=== PATIENT | female | born 1975 | race African-American/Black ===

== ENCOUNTER 2016-12-03 10:47 | Inpatient (IN) | payer OTHER ==
[~2016-12-03] VITALS: Ht 170.2 cm; Wt 93.0 kg
[~2016-12-03 10:47] MED LIST: ADIPEX-P37.5 M1 PO; ALDACTONE50 MG PO; ALEVE220 MG PO; ALLEGRA30 MG PO; APAP500 PO; B COMPLEX-VITA1 EACH PO; BENADRYL25 MG PO; CARISOPRODOL 3350 MG PO; COLACE100 MG PO; DIFLUCAN150 M1 PO; ERYTHROMYCIN E3.5 G1; ERYTHROMYCIN E3.5 G1 OP; FEOSOL325 M1 PO; FLEXERIL PO; FLONASE 0.05%50 MCG NASAL; FLONASE16 GM INH; GAS RELIEF 8080 MG PO; IBUPROFEN 600600 M1 PO; IBUPROFEN 800800 M1 PO; IRON PO; LOTRISONE CREAM15 GM TOP; MEDROLDOSEPACK PO; NABUMETONE 750750 M1 PO; NORCO 5-325 TA1 EACH PO; NORFLEX100 MG PO; ORACEA40 MG PO; PEPCID AC20 M1 PO; PEPCID AC20 MG PO; PEPCID20 MG PO; PERCOCET 5-3251 EACH PO; PHENTERMINE H37.5 MG PO; PREDNISONE 10 M10 MG PO; PREDNISONE 20 M20 M1 PO; PREDNISONE50 MG PO; PRILOSEC 20 MG20 MG PO; THERA-M CAPLET1 EACH PO; TRAMADOL 50 MG50 MG PO; TRINATE TABLET1 TAB PO; VANCOMYCIN1.25 GM/15 IV; VISTARIL 25 MG25 M1 PO; ZANAFLEX4 MG PO; ZOFRAN 4 MG ORAL4 MG PO; ZOFRAN ODT4 MG PO; [UNRECOGNIZED DRUG - OTHER] INJECTION; [UNRECOGNIZED DRUG - OTHER] PO
[2016-12-03 10:49] VITALS: BP 136/71
[2016-12-03 11:32] LABS: ABSOLUTE NEUTROPHILS 2.9 thou/uL (1.4-8.2); BASOPHILS 0.3 % (0.0-2.0); HEMATOCRIT 35.8 % (37.0-47.0); LYMPHOCYTES 20.9 % (24.0-44.0); MCH 29.9 pg (26.0-34.0); MCHC 33.6 g/dL (28.0-37.0); MCV 88.9 fL (80.0-100.0); PLATELET COUNT 304 thou/uL (150-400); POLYS 61.8 % (36.0-66.0); RBC 4.02 mil/uL (4.20-5.00); RDW 13.7 % (10.5-14.5); WBC 4.7 thou/uL (4.0-11.0)
[2016-12-03 11:33] LABS: MANUAL DIFF NO
[2016-12-03 11:44] LABS: CALCIUM 8.9 mg/dL (8.5-10.1); CREATININE 0.7 mg/dL (0.6-1.3)
[2016-12-03 11:46] LABS: POTASSIUM 4.5 mmol/L (3.5-5.1)
[2016-12-03] MEDS ORDERED: COLACE100 MG PO (11:54)
[2016-12-03] MEDS ORDERED: MOBIC15 MG PO (11:54)
[2016-12-03] MEDS ORDERED: KEFLEX500 MG PO (11:54)
[2016-12-03] MEDS ORDERED: HYDROCODON-ACE1 EAC7 PO (11:54)
[2016-12-03] MEDS ORDERED: HYDROCODONE-AP1 EAC6 PO (11:55)
[2016-12-03 15:22] VITALS: BP 132/71
[2016-12-03 15:45] VITALS: BP 139/71
[2016-12-03 20:00] VITALS: BP 129/79
[2016-12-04 04:00] VITALS: BP 117/58
[2016-12-04 07:05] VITALS: BP 116/65
[2016-12-04 15:15] VITALS: BP 113/62
[2016-12-04 19:35] VITALS: BP 109/67
[2016-12-05 04:00] VITALS: BP 107/51
[2016-12-05 08:48] VITALS: BP 118/72
[2016-12-05] MEDS ORDERED: ROBITUSSIN DM118 ML PO (11:47)
[2016-12-05] MEDS ORDERED: LEVAQUIN 500 M500 M2 PO (11:48)
[2016-12-05 12:53] VITALS: BP 118/72
[2016-12-05] MEDS ORDERED: ACCUNEB SO1.25 MG/1 INH (13:58)
== END 2016-12-05 15:00 | disposition home or self-care (01) | DRG 194 ==
LOC: ER 10:47 → 5S 13:01 → EROBS 13:01 → 5S 15:20
PROVIDERS: Emergency Medicine
DX: J15.9 Unspecified bacterial pneumonia (principal); J90 Pleural effusion, not elsewhere classified; Z90.711 Acquired absence of uterus with remaining cervical stump; Z79.2 Long term (current) use of antibiotics; Z79.899 Other long term (current) drug therapy; Z90.49 Acquired absence of other specified parts of digestive tract; Z88.8 Allergy status to other drugs, medicaments and biological substances
CPT/HCPCS: 10086

== ENCOUNTER → 2017-08-04 | Outpatient (CLI) | payer OTHER ==
[~2017-08-04] MED LIST changes: +ACCUNEB SO1.25 MG/1 INH; +AMOXICILLIN 50500 M1 PO; +HYDROCODON-ACE1 EAC7 PO; +HYDROCODONE-AP1 EAC6 PO; +KEFLEX500 MG PO; +LEVAQUIN 500 M500 M2 PO; +MOBIC15 MG PO; +ROBITUSSIN DM118 ML PO
== END ==
LOC: RAD 12:02
DX: M77.11 Lateral epicondylitis, right elbow (principal)

== ENCOUNTER → 2017-10-05 | Outpatient (CLI) | payer OTHER ==
[~2017-10-05] MED LIST changes: +KEFLEX500 M1 PO; +TIZANIDINE HCL4 MG PO; +ULTRAM 50MG TAB50 MG PO
[2017-10-05 15:35] LABS: HEMATOCRIT 40.2 % (37.0-47.0); HEMOGLOBIN 13.5 gm/dL (12.0-15.0); MCH 30.4 pg (26.0-34.0); MCHC 33.5 g/dL (28.0-37.0); MCV 90.8 fL (80.0-100.0); RBC 4.43 mil/uL (4.20-5.00); RDW 13.7 % (10.5-14.5); WBC 8.8 thou/uL (4.0-11.0)
[2017-10-05 15:49] LABS: ALBUMIN 3.5 g/dL (3.4-5.0); CALCIUM 8.6 mg/dL (8.5-10.1); CREATININE 0.7 mg/dL (0.6-1.0); POTASSIUM 3.7 mmol/L (3.5-5.1); TOTAL BILIRUBIN 0.4 mg/dL (<0.1-1.0)
== END ==
LOC: LAB 15:11
PROVIDERS: Internal Medicine Pulmonary Disease
DX: E66.3 Overweight (principal); G47.33 Obstructive sleep apnea (adult) (pediatric); R53.83 Other fatigue; R06.83 Snoring; Z87.01 Personal history of pneumonia (recurrent)

== ENCOUNTER → 2017-10-08 | Outpatient (CLI) | payer OTHER | LOC: SLEEPLAB 09-28 12:42 | DX: G47.33 Obstructive sleep apnea (adult) (pediatric) (principal) ==

== ENCOUNTER 2018-01-20 14:19 | Emergency (ER) | payer OTHER ==
[~2018-01-20] VITALS: Ht 170.2 cm; Wt 93.0 kg
== END 2018-01-20 15:59 | disposition home or self-care (01) ==
LOC: ER 14:19
DX: R10.13 Epigastric pain (principal); Z90.711 Acquired absence of uterus with remaining cervical stump; Z88.8 Allergy status to other drugs, medicaments and biological substances

== ENCOUNTER → 2018-01-20 | Outpatient (CLI) | payer OTHER | LOC: ULTRA 06:57 | DX: N28.1 Cyst of kidney, acquired (principal) ==

== ENCOUNTER → 2018-02-02 | Outpatient (CLI) | payer OTHER | LOC: NUC 06:38 | DX: K21.9 Gastro-esophageal reflux disease without esophagitis (principal) ==

== ENCOUNTER 2019-05-06 22:54 | Emergency (ER) | payer OTHER ==
[~2019-05-06] VITALS: Ht 167.6 cm; Wt 90.7 kg
[2019-05-06] MEDS ORDERED: PHENTERMINE H37.5 M1 PO (23:22)
[2019-05-06] MEDS ORDERED: NAPROSYN500 MG PO (23:45)
[2019-05-06] MEDS ORDERED: NORCO 5-325 TA1 EAC1 PO (23:45)
[2019-05-07 02:46] VITALS: BP 106/38
[2019-05-07] MEDS ORDERED: ONDANSETRON ODT8 MG PO (02:54)
== END 2019-05-07 02:46 | disposition home or self-care (01) ==
LOC: ER 22:54
DX: S76.311A Strain of muscle, fascia and tendon of the posterior muscle group at thigh level, right thigh, initial encounter (principal); S30.0XXA Contusion of lower back and pelvis, initial encounter; S80.02XA Contusion of left knee, initial encounter; Z90.711 Acquired absence of uterus with remaining cervical stump; Z98.890 Other specified postprocedural states; Z88.6 Allergy status to analgesic agent; W01.0XXA Fall on same level from slipping, tripping and stumbling without subsequent striking against object, initial encounter; Y93.89 Activity, other specified; Y92.89 Other specified places as the place of occurrence of the external cause; Y99.8 Other external cause status

== ENCOUNTER → 2019-05-19 | Outpatient (CLI) | payer OTHER ==
[~2019-05-19] MED LIST changes: +NAPROSYN500 MG PO; +NORCO 5-325 TA1 EAC1 PO; +ONDANSETRON ODT8 MG PO; +PHENTERMINE H37.5 M1 PO
== END ==
LOC: MRI 10:09
DX: S96.891A Other specified injury of other specified muscles and tendons at ankle and foot level, right foot, initial encounter (principal); M47.816 Spondylosis without myelopathy or radiculopathy, lumbar region; M47.817 Spondylosis without myelopathy or radiculopathy, lumbosacral region; M79.651 Pain in right thigh; X58.XXXA Exposure to other specified factors, initial encounter; Y93.89 Activity, other specified; Y92.89 Other specified places as the place of occurrence of the external cause; Y99.8 Other external cause status

== ENCOUNTER 2019-08-14 13:25 | Emergency (ER) | payer OTHER ==
[~2019-08-14] VITALS: Ht 170.2 cm; Wt 94.8 kg
[2019-08-14 14:40] VITALS: BP 104/69
== END 2019-08-14 14:40 | disposition home or self-care (01) ==
LOC: ER 13:25
DX: J02.9 Acute pharyngitis, unspecified (principal); H61.22 Impacted cerumen, left ear; Z98.890 Other specified postprocedural states; Z90.711 Acquired absence of uterus with remaining cervical stump; Z88.6 Allergy status to analgesic agent

== ENCOUNTER 2019-09-16 14:54 | Emergency (ER) | payer OTHER ==
[~2019-09-16] VITALS: Ht 170.2 cm; Wt 95.3 kg
[2019-09-16] MEDS ORDERED: PEPCID20 MG PO (16:58)
[2019-09-16] MEDS ORDERED: PREDNISONE 20 M20 MG PO (16:58)
[2019-09-16 17:45] VITALS: BP 122/71
== END 2019-09-16 17:35 | disposition home or self-care (01) ==
LOC: ER 14:54
DX: T78.3XXA Angioneurotic edema, initial encounter (principal); Z98.890 Other specified postprocedural states; Z90.711 Acquired absence of uterus with remaining cervical stump; Z88.6 Allergy status to analgesic agent

== ENCOUNTER → 2019-09-26 | Outpatient (CLI) | payer OTHER ==
[~2019-09-26] MED LIST changes: +PREDNISONE 20 M20 MG PO
== END ==
LOC: ULTRA 15:49
DX: R10.11 Right upper quadrant pain (principal); R11.0 Nausea

== ENCOUNTER → 2019-11-04 | Outpatient (CLI) | payer OTHER ==
[~2019-11-04] VITALS: Ht 170.2 cm; Wt 96.6 kg
[~2019-11-04] MED LIST changes: +ALEVE220 M1 PO; +PANTOPRAZOLE SO40 M1 PO; +TUMS200 MG PO
--- NOTE | 2019-11-04 12:59 | P ---
[facility] [place] [address] PROCEDURE REPORT Name: DEJA SCHWAB Room #: REG [facility] Brittany#: [id number] Admission: 11/04/19 Attend Phys: Rosalino Martinez Discharge: Date of : 75 Report #: [id number] THIS REPORT FOR: cc: Dominic John,Rosalino Valdez MD ~ CC: Rosalino John DO DATE OF SERVICE: 11/04/2019 PROCEDURE PERFORMED: Upper endoscopy with biopsies and esophageal dilation. HISTORY OF PRESENT ILLNESS: The patient is a 44-year-old female with a history of gastroesophageal reflux disease. Despite taking Prevacid twice a day, she continues to have intermittent mid epigastric as well as right upper quadrant abdominal pain and heartburn. She also has tried Carafate without much improvement. The patient also complains of dysphagia. She had an ultrasound of the abdomen on 09/26/2019, which was normal. Plan is for upper endoscopy. DESCRIPTION OF PROCEDURE: The risks and benefits of the procedure were explained to the patient, those risks including but not limited to bleeding, perforation and the risk of sedation. She understood these risks and gave informed consent. Sedation was given using propofol per anesthesia. Next, using a standard Olympus upper endoscope, the scope was placed in the patient's mouth and advanced under direct vision through the esophagus, stomach and into the second portion of the duodenum. The upper and mid esophagus were normal. There was a grade A erosive esophagitis at the GE junction. Overall, the gastric mucosa was normal. Biopsies were obtained to rule out the possibility of H. pylori. The pylorus was normal and patent. The duodenal bulb, first and second portion were all normal. Biopsies were obtained to rule out the possibility of celiac sprue. The scope was then brought back up into the patient's stomach and a guidewire was inserted through the scope, leaving the guidewire in place as the scope was then withdrawn. Next, a 51-Portuguese Savary dilation of her esophagus was performed without difficulty. The wire and dilator were removed. The scope was reintroduced into the patient's stomach. No evidence of mucosal tear was noted after dilation. The scope was then withdrawn and the procedure terminated. The patient tolerated the procedure well. IMPRESSION: 1. Grade A erosive esophagitis. 2. Otherwise, normal upper endoscopy. RECOMMENDATIONS: [facility] [address] [place] [address] PROCEDURE REPORT Name: DEJA SCHWAB Room #: REG ARLYN Soto#: [id number] Admission: 11/04/19 Attend Phys: Rosalino Martinez Discharge: Date of : 75 Report #: [id number] 1. Await biopsy results. 2. May need to consider a fundoplication surgery as the patient is already on b.i.d. PPI therapy and Carafate and has continued symptoms. We also discussed proceeding with a PIPIDA scan as gallbladder may be still etiology of her right upper quadrant abdominal pain. Thank you for allowing me to participate in her care. <ELECTRONICALLY SIGNED> By: Rosalino Garner MD 11/04/19 1259 1002 1122 Rosalino Garner MD /nt
--- NOTE | 2019-11-07 17:09 | PATH ---
[facility] [place] [address] PATHOLOGY RPT PROCEDURE Name: DEJA PITTMAN Room #: REG ARLYN Carranza.Franky.#: [id number] Admission: 11/04/19 Date of : 75 Discharge: Report #: [id number] Path Case #: [id number] [facility] Accession Number: [id number] . 01 Material submitted: . PART A: duodenum - BX OF DUODENUM PART B: stomach - BX OF GASTRIC . 01 Clinical history: . Abdominal pain, dysphagia, reflux. . 02 Diagnosis: A. Small bowel mucosa, duodenum, rule out sprue, endoscopic biopsy: - No diagnostic abnormalities. - Negative for villous blunting or increase in intraepithelial lymphocytes. . B. Gastric mucosa, gastric, rule out H. pylori, endoscopic biopsy: - Mild chronic gastritis. - Negative for intestinal metaplasia or atrophy. - Negative for Helicobacter pylori (properly controlled immunohistochemical stain performed). (IUV:pit 11/07/2019) QTP 11/07/2019 1249 Local . 02 Electronically signed: . Teena Carrillo MD, Pathologist NPI- [id number] . 01 Gross description: . A. Received in formalin labeled "PittmanStephaneDeja, BX of duodenum rule out sprue" is a 0.6 x 0.5 x 0.1 cm aggregate of costa-brown soft tissue fragments. The specimen is submitted entirely in A1. . B. Received in formalin labeled "Deja Pittman, BX of gastric rule out H. pylori" is a 0.8 x 0.5 x 0.1 cm aggregate of costa-brown soft tissue fragments. The specimen is submitted entirely in B1. [place] [place]06/[place] PSYCHIATRIC/PSYCHIATRIC 11/06/2019 1048 Local . 02 Pathologist provided ICD-10: K29.50, R10.9, R13.10, K21.9 . 02 CPT . 801212, [id number] Specimen Comment: A courtesy copy of this report has been sent to [phone] Specimen Comment: [address] [place] [address] PATHOLOGY RPT PROCEDURE Name: DEJA PITTMAN JOHNATHAN Room #: REG ARLYN Soto#: [id number] Admission: 11/04/19 Date of : 75 Discharge: Report #: [id number] Path Case #: [id number] Specimen Comment: Report sent to / DR MARTINEZ Performed at: [address], [place], [place] [id number] MD Nixon Russell MD Phone: [phone] Performed at: [address] [id number] MD Teena Carrillo MD Phone: [phone]
== END | disposition home or self-care (01) ==
LOC: GI 11-02 18:38
DX: K29.50 Unspecified chronic gastritis without bleeding (principal); K22.10 Ulcer of esophagus without bleeding; R13.19 Other dysphagia; K21.9 Gastro-esophageal reflux disease without esophagitis; G47.30 Sleep apnea, unspecified; D64.9 Anemia, unspecified; Z90.711 Acquired absence of uterus with remaining cervical stump; Z98.890 Other specified postprocedural states; Z79.899 Other long term (current) drug therapy; Z88.8 Allergy status to other drugs, medicaments and biological substances
CPT/HCPCS: 62110; 62900; 70005

== ENCOUNTER 2019-11-29 14:40 | Emergency (ER) | payer OTHER ==
[~2019-11-29] VITALS: Ht 170.2 cm; Wt 95.3 kg
[2019-11-29 15:48] LABS: HEMATOCRIT 41.2 % (37.0-47.0); HEMOGLOBIN 13.8 gm/dL (12.0-15.0); MCH 30.3 pg (26.0-34.0); MCHC 33.4 g/dL (28.0-37.0); MCV 90.7 fL (80.0-100.0); PLATELET COUNT 230 thou/uL (150-400); RBC 4.54 mil/uL (4.20-5.00); RDW 13.1 % (10.5-14.5); WBC 2.8 thou/uL (4.0-11.0)
[2019-11-29 15:57] LABS: CALCIUM 8.4 mg/dL (8.5-10.1); CREATININE 0.7 mg/dL (0.6-1.0); POTASSIUM 3.5 mmol/L (3.5-5.1)
[2019-11-29] MEDS ORDERED: VENTOLIN HFA 1818 GM INH (16:11)
[2019-11-29 16:25] VITALS: BP 114/72
[2019-11-29 17:52] LABS: ABSOLUTE NEUTROPHILS 1.7 thou/uL (1.4-8.2)
[2019-11-29 17:54] LABS: ANISOCYTOSIS SLIGHT
== END 2019-11-29 16:25 | disposition home or self-care (01) ==
LOC: ER 14:40
PROVIDERS: Physician Assistant
DX: R05 Cough (principal); R06.02 Shortness of breath; R53.1 Weakness; R11.2 Nausea with vomiting, unspecified; R19.7 Diarrhea, unspecified; R42 Dizziness and giddiness; Z20.828 Contact with and (suspected) exposure to other viral communicable diseases; K21.9 Gastro-esophageal reflux disease without esophagitis; Z86.14 Personal history of Methicillin resistant Staphylococcus aureus infection; Z90.710 Acquired absence of both cervix and uterus; Z79.899 Other long term (current) drug therapy; Z88.1 Allergy status to other antibiotic agents

== ENCOUNTER 2019-12-03 15:01 | Inpatient (IN) | payer OTHER ==
[~2019-12-03] VITALS: Ht 170.2 cm; Wt 99.8 kg
[2019-12-03 15:01] VITALS: BP 144/70
[~2019-12-03 15:01] MED LIST changes: +VENTOLIN HFA 1818 GM INH
[2019-12-03 15:38] LABS: ABSOLUTE NEUTROPHILS 6.5 thou/uL (1.4-8.2); BASOPHILS 0.4 % (0.0-2.0); HEMATOCRIT 42.2 % (37.0-47.0); HEMOGLOBIN 14.1 gm/dL (12.0-15.0); LYMPHOCYTES 10.7 % (24.0-44.0); MCH 30.1 pg (26.0-34.0); MCHC 33.3 g/dL (28.0-37.0); MCV 90.5 fL (80.0-100.0); PLATELET COUNT 286 thou/uL (150-400); POLYS 84.9 % (36.0-66.0); RBC 4.67 mil/uL (4.20-5.00); RDW 13.5 % (10.5-14.5); WBC 7.7 thou/uL (4.0-11.0)
[2019-12-03 15:56] LABS: ANION GAP 10 mmol/L (7-16); BUN 14 mg/dL (7-18); CALCIUM 10.2 mg/dL (8.5-10.1); CHLORIDE 104 mmol/L (98-107); CO2 26 mmol/L (21-32); CREATININE 0.9 mg/dL (0.6-1.0); GLUCOSE 127 mg/dL (74-106); POTASSIUM 4.3 mmol/L (3.5-5.1); SODIUM 140 mmol/L (136-145)
[2019-12-03 16:02] LABS: ALBUMIN 3.4 g/dL (3.4-5.0); DIRECT BILIRUBIN < 0.1 mg/dL (<0.1-0.2); SGOT 26 U/L (15-37); SGPT 29 U/L (30-65); TOTAL BILIRUBIN 0.3 mg/dL (<0.1-1.0); TROPONIN-I <0.06 ng/mL (<0.06)
[2019-12-03 17:45] VITALS: BP 144/70
[2019-12-03] MEDS ORDERED: ALBUTEROL0.63 MG/3 INH (17:55)
[2019-12-03] MEDS ORDERED: RAYOS5 MG PO (17:59)
[2019-12-03] MEDS ORDERED: AZITHROMYCIN500 MG PO (17:59)
[2019-12-03 20:18] VITALS: BP 129/71
[2019-12-03] MEDS ORDERED: PEPCID20 MG PO (22:26)
[2019-12-03] MEDS ORDERED: CARAFATE 1 GM TA1 G1 PO (22:27)
[2019-12-04] VITALS (7 sets, daily range): BP systolic 109–131; BP diastolic 62–81
--- NOTE | 2019-12-04 03:44 | NUR ---
ADMITTED FROM ER UNDER 'S CARE. ADMITTED WITH SOB,COVID-19 RESULTS PENDING. AXOX4. INDEPENDENT WIH ADLS. PLACED ON ENHANCED ISOLATION. ALL PROPER PPES WORN FOR PT CARE. PO ATB ORDER CLARIFID WITH ESTIMATOR JEWELRY MARKET ANALYST FOR MARIANNA. HOME MED REC COMPLETED AND MEDICATION SEALED AND STORED IN ROOM UNDER'S PT'S WRITTEN CONSENT THAT PT WILL NOT OPEN THE SELAED BAG UNDER PHARMACY'S INSTRUCTION. NO S/S ACUTE DISTRESS NOTED OR REPORTED AT THIS TIME. WILL CONT TO MONITOR FOR ANY CHANGES IN CONDITION.
[2019-12-04 06:31] LABS: HEMATOCRIT 37.4 % (37.0-47.0); HEMOGLOBIN 12.3 gm/dL (12.0-15.0); MCHC 32.9 g/dL (28.0-37.0); RBC 4.1 mil/uL (4.20-5.00); RDW 13.3 % (10.5-14.5); WBC 5.7 thou/uL (4.0-11.0)
[2019-12-04 06:41] LABS: CALCIUM 8.4 mg/dL (8.5-10.1); CREATININE 0.8 mg/dL (0.6-1.0)
[2019-12-04 06:51] LABS: POTASSIUM 3.1 mmol/L (3.5-5.1)
--- NOTE | 2019-12-04 15:28 | NUR ---
PT IS A&OX3, PT IS CONTINUING NS@75ML/HR, O2 1L/MIN/NC, AND BREATHING TREATMENT, PT STILL HAS SOME COUGHING , BUT PT DENIES SOB AND CHEST PAIN, PT GETS UP TO BATH ROOM BY HERSELF, PT IS CONTINUING ISOLATION TO R/O COVID.
[2019-12-05 00:25] VITALS: BP 125/64
--- NOTE | 2019-12-05 01:48 | NUR ---
Pt is A&Ox4. VSS. Afebrile. Frequent cough noted. Resp tx per RT. Medicated with tylenol for c/o BOCANEGRA 03/16 and pain from coughing. C/o insomina. Medicated with tylenol with moderate relief obtained. Notified Strap Buckler Machine Quentin Carter regarding pain unreieved by tylenol and insomnia. Guaiffenison with codeine and meatonin 5mg given. Pt sleeping presently. No c/o cough or pain presently. Labs ordered for am f/u with k and mg from 12/03. Pt was able to do her own shower today but c/o dizziness on way back to bed. Instructed pt to call for assistance if she needed to get up. BSC provided.
[2019-12-05 05:10] VITALS: BP 123/75
--- NOTE | 2019-12-05 06:18 | NUR ---
Pt c/o cough and BOCANEGRA pain from coughing. Medicated with 2 tylenol and 1 tessalon hanna. Pt currenty on pone in room no c/o. Will continue to monitor pt for changes.VSS.
[2019-12-05 06:29] LABS: CREATININE 0.7 mg/dL (0.6-1.0); MAGNESIUM 1.9 mg/dL (1.8-2.4); POTASSIUM 3.9 mmol/L (3.5-5.1)
[2019-12-05 07:52] VITALS: BP 125/73
[2019-12-05 10:58] VITALS: BP 104/70
--- NOTE | 2019-12-05 12:45 | NUR ---
PT IS A&OX3, PT HAS OFF O2 TODAY, PT'S COUGHING HAS IMPROVED, PT'S VS ARE STABLE, PT DOES NOT FEVER BY THIS TIME, PT HAS STARTED PO HYDROXYCHLOROQUIN AND AZITHROMYCIN, PT DENIES SOB , PT IS CONTINUING ISOLATION TO R/O COVID .
--- NOTE | 2019-12-05 15:21 | NUR ---
INITIAL ASSESSMENT: SW reviewed chart and spoke with nursing. Pt was admitted from home. Pt is in Enhanced Isolation to r/o COVID-19. Pt had test done on 11/28 as an outpatient. 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. Prior to admission, pt was living at home and independent with ADLs. SW is following to assist as needed with discharge planning.
[2019-12-05 17:00] VITALS: BP 137/60
[2019-12-05 19:24] VITALS: BP 138/70
--- NOTE | 2019-12-05 21:10 | NUR ---
Pt alert and oriented x4. Progressing slowly toward d/c goals. She stated she feels better today. VSS. Low grade temp 98.8. Lungs sound very dimished. Unlabored on RA. C/o pain while passing meds. Guaifenisen given for cough. Tylenol given for BOCANEGRA 03/16. Melatonin given for sleep. Resp. tx given per rt. Pt up in chair watching tv. No s/s distress presently. Will continue to monitor pt for changes.
--- NOTE | 2019-12-05 23:07 | NUR ---
Report given to Aly RIVERA and Mani RIVERA orientee. Pt has been resting better after pain meds and cough medicine. Covid 19 result still pending. progressing towards d/c goals. She stated she feels better today.
--- NOTE | 2019-12-05 23:08 | NUR ---
0757 - RECEIVED REPORT FROM PM RN REGARDING THE PATIENT. WILL ASSESS SOON. WILL CONTINUE TO MONITOR.
[2019-12-06 08:54] VITALS: BP 135/73
--- NOTE | 2019-12-06 13:07 | NUR ---
SW reviewed chart and spoke with nursing. Pt remains in Enhanced Isolation to r/o COVID-19. Plan is for pt to discharge home when medically stable. SW is following to assist as needed with discharge planning.
--- NOTE | 2019-12-06 15:55 | NUR ---
ASSUMED CARE AT 0700. PT IS USING OXYGEN PRN @2LNC AND IS AWARE OF WHEN SHE NEEDS IT. PT REPORTS THAT SHE ONLY NEEDED TO USE THE OXYGEN THIS AM FOR A SHORT PERIOD OF TIME AND HASN'T NEEDED IT SINCE THEN. PT SHOWING NO SIGNS OF SHORTNESS OF AIR OR RESPIRATORY DISTRESS. PT NOTED TO HAVE A COUGHING SPELL FOR ABOUT AN HOUR AND WAS GIVEN COUGH SUPPRESSANTS. PT RESPONDED WELL TO TREATMENT. PT REPORTED INCREASED RT FLANK PAIN AND HEADACHE WITH COUGHING. DR. CABRAL NOTIFIED AND HYDROCODONE WAS ORDERED. PT IS RESPONDING WELL TO PAIN MEDICATION. STILL WAITING FOR COVID-19 RESULTS. PT SLOWLY PROGRESSING TOWARDS PLAN OF CARE GOALS. WILL CONTINUE TO MONITOR.
[2019-12-06 16:51] VITALS: BP 141/68
[2019-12-06 21:37] VITALS: BP 124/75
[2019-12-07 00:34] VITALS: BP 121/65
--- NOTE | 2019-12-07 03:59 | NUR ---
Pt alert and oriented x4. VSS afebrile. Pulse in the 50's and 60's. Unlabored on RA. Sats WNL. Pt c/o headache and right abdominal area pain she stated from coughing. She stated she did not want to take any more pain meds. Zofran 4mg IV given. Moderate relief obtained . C/o dizziness . Instructed pt not ambulate without help to BR. BSC at bedside. Enc. pt to use o2 prn. I have offered to call Dr to get extra dose of nausea medicine. She started she could wait until 04:44 for next dose of zofran but still refused pain medicine. She is drinking po well. She stated she had 2 bms that were formed. Denied diarrhea. Will continue to monitor pt for changes. Presently she appears to be sleeping.
[2019-12-07 05:21] VITALS: BP 127/75
--- NOTE | 2019-12-07 06:20 | NUR ---
Pt A&Ox4. Hr 48-52. Afebrile other VSS. Pt sleepy. Awakens easily to go to BR. Gait is steady. She denied need for pain medicine tonight due to she was medicated prior to shift and became nauseated. Ice pack given for abdominal pain she says is from coughing so much. Pt refused cough medicine due to she is nauseated. Zofran given IVx2 tonight. She is sleeping presently. New SL started RFA due to previous SL infiltrated. Instructed pt to call ns for help if she felt weak or dizzy. Bed down. Call light in reach. Bed in low locked position. She has not needed her oxygen tonight. O2sats WNL. Instructed pt to void in hat in bathroom so we can do accuarate I&O. She has voided 2 times and had 3 bms formed.
[2019-12-07 08:38] VITALS: BP 129/75
[2019-12-07 10:20] VITALS: BP 137/72
--- NOTE | 2019-12-07 14:25 | NUR ---
SW reviewed chart and spoke with nursing and attending physician. Pt remains in Enhanced Isolation pending COVID-19 test results. Anticipate pt will be ready for discharge later today or tomorrow. No discharge needs identified at this time, but is available to assist should needs arise.
[2019-12-07 15:53] VITALS: BP 136/99
--- NOTE | 2019-12-07 18:42 | NUR ---
Assumed care approx. 0700 this AM with malorie Vazquez RN. Pt still complains of cough, fatigue, and nausea. Pt on room air. Compazine added per Dr. Robbins. Pt given the option to discharge today, but patient decided to wait until tomorrow due to severe nausea. No other acute changes noted. Still waiting for COVID-19 results. Pt slowly progressing toward goals.
[2019-12-07 20:14] VITALS: BP 113/65
--- NOTE | 2019-12-07 21:50 | NUR ---
ASSUMED CARE FOR THIS PT AT 1900, UPON ASSESSMENT PT WAS COMFORTABLE, VS STABLE. PT DID C/O R FLANK PX WHICH HAS BEEN PRESENT SINCE ADMISSION. VICODIN OFFERED FOR PAIN 04/16 BUT PT REFUSED AND ASKED FOR TYLENOL INSTEAD, THE RN PROVIDED THE MEDS. PT IS AOX4, PT REQUESTED WARM BLANKETS AND SORBET ICECREAM, THE RN OFFERED THOSE ITEMS. PT HAS NO OTHER CONCERNS AT THIS TIME. PT IS ON RA AND WAS RESTING ON THE CHAIR. THE SCDS WERE OFF BUT PT STATED WILL PUT IT BACK ON WHEN IN BED. RN IS ASSUMING CARE OF DIFFERENT PATIENT NOW, SIGNING OFF AND WILL PROVIDE SBAR REPORT TO THE ONCOMING RN.
[2019-12-08 03:17] LABS: URINE BILIRUBIN NEGATIVE (Negative); URINE BLOOD NEGATIVE (Negative); URINE CLARITY CLEAR; URINE COLOR YELLOW; URINE GLUCOSE-RANDOM* NEGATIVE (Negative); URINE KETONES NEGATIVE (Negative); URINE LEUKOCYTES-REFLEX NEGATIVE (Negative); URINE NITRITE-REFLEX NEGATIVE (Negative); URINE PROTEIN (DIPSTICK) NEGATIVE (Negative); URINE SPECIFIC GRAVITY >= 1.030 (1.005-1.035); URINE UROBILINOGEN 0.2 E.U./dl (0.2-1.0)
[2019-12-08 08:31] VITALS: BP 112/53
[2019-12-08 12:02] VITALS: BP 112/53
--- NOTE | 2019-12-08 13:28 | NUR ---
DISCHARGE NOTE: SW reviewed chart and spoke with nursing and attending physician. Pt remains in Enhanced Isolation to r/o COVID-19. Results are pending. Pt to discharge home today per attending. Pt to self quarantine at home following discharge. No discharge needs identified at this time. Case closed.
--- NOTE | 2019-12-16 12:10 | EKG ---
[facility] [place] [place] [address] ELECTROCARDIOGRAM REPORT Name: DEJA SCHWAB Room #: 363-P [facility] IN M.R.#: [id number] Admission: 12/03/19 Attend Phys: Javi Robbins MD Discharge: 12/08/19 Date of : 75 Report #: [id number] THIS REPORT FOR: cc: Dominic John James A. DO Lundgren, Craig H. MD [facility] ~ THIS REPORT FOR: //name// [facility] ED Test Date: 2019-12-03 Test Time: 16:00:10 Pat Name: DEJA SCHWAB Department: Room: [facility] Gender: F Income Tax Analyst: ESSIE : 1975 Requested By: Deborah Cool Order Number: [id number] MD: Ronald Steve Measurements Intervals [place] Rate: 73 P: 42 NH: 152 QRS: 9 QRSD: 72 T: 1 QT: 383 QTc: 422 Interpretive Statements Sinus rhythm Nonspecific T wave abnormality Compared to ECG 03/29/2016 03:21:18 No significant change was found Electronically Signed On 12-05-2019 8:49:22 CDT by Ronald Steve [email or web address] <ELECTRONICALLY SIGNED> By: Ronald Steve MD, [facility] 12/05/19 0849 1600 1600 Ronald Steve MD, [facility] /EPI
== END 2019-12-08 13:23 | disposition home or self-care (01) | DRG 189 ==
LOC: ER 15:01 → 3W 18:40 → EROBS 18:40 → 3W 19:42
PROVIDERS: Emergency Medicine; ADMIT Hospitalist
DX: J96.01 Acute respiratory failure with hypoxia (principal); J20.8 Acute bronchitis due to other specified organisms; B34.9 Viral infection, unspecified; T78.3XXA Angioneurotic edema, initial encounter; J45.909 Unspecified asthma, uncomplicated; G47.33 Obstructive sleep apnea (adult) (pediatric); J45.20 Mild intermittent asthma, uncomplicated; Z20.828 Contact with and (suspected) exposure to other viral communicable diseases; K21.9 Gastro-esophageal reflux disease without esophagitis; Z90.710 Acquired absence of both cervix and uterus; Z88.1 Allergy status to other antibiotic agents; Z79.899 Other long term (current) drug therapy
CPT/HCPCS: 10080

== ENCOUNTER 2020-05-10 18:07 | Emergency (ER) | payer OTHER ==
[~2020-05-10] VITALS: Ht 170.2 cm; Wt 95.3 kg
[~2020-05-10 18:07] MED LIST changes: +ALBUTEROL0.63 MG/3 INH; +AZITHROMYCIN500 MG PO; +CARAFATE 1 GM TA1 G1 PO; +RAYOS5 MG PO
[2020-05-10 19:41] LABS: URINE BILIRUBIN NEGATIVE (Negative); URINE BLOOD NEGATIVE (Negative); URINE CLARITY CLEAR; URINE COLOR YELLOW; URINE GLUCOSE-RANDOM* NEGATIVE (Negative); URINE KETONES NEGATIVE (Negative); URINE LEUKOCYTES-REFLEX NEGATIVE (Negative); URINE NITRITE-REFLEX NEGATIVE (Negative); URINE PROTEIN (DIPSTICK) NEGATIVE (Negative); URINE SPECIFIC GRAVITY 1.015 (1.005-1.035); URINE UROBILINOGEN 0.2 E.U./dl (0.2-1.0)
[2020-05-10 20:20] VITALS: BP 135/59
== END 2020-05-10 20:20 | disposition home or self-care (01) ==
LOC: ER 18:07
PROVIDERS: Emergency Medicine
DX: M54.5 Low back pain (principal); R10.9 Unspecified abdominal pain; R82.998 Other abnormal findings in urine; K21.9 Gastro-esophageal reflux disease without esophagitis; Z90.711 Acquired absence of uterus with remaining cervical stump; Z98.890 Other specified postprocedural states; Z86.14 Personal history of Methicillin resistant Staphylococcus aureus infection; Z79.899 Other long term (current) drug therapy; Z88.1 Allergy status to other antibiotic agents

== ENCOUNTER → 2020-08-16 | Outpatient (CLI) | payer OTHER | LOC: LAB 11:37 | PROVIDERS: ATTEND Nurse Practitioner | DX: R43.8 Other disturbances of smell and taste (principal); Z20.828 Contact with and (suspected) exposure to other viral communicable diseases ==

== ENCOUNTER 2020-11-05 20:46 | Emergency (ER) | payer OTHER ==
[~2020-11-05] VITALS: Ht 170.2 cm; Wt 97.5 kg
[2020-11-05 20:50] VITALS: BP 122/75
[2020-11-05] MEDS ORDERED: ONDANSETRON HCL4 M2 PO (21:25)
== END 2020-11-05 21:33 | disposition home or self-care (01) ==
LOC: ER 20:46
DX: R11.0 Nausea (principal); K21.9 Gastro-esophageal reflux disease without esophagitis; Z79.899 Other long term (current) drug therapy; Z88.1 Allergy status to other antibiotic agents

== ENCOUNTER → 2021-03-01 | Outpatient (CLI) | payer OTHER ==
[~2021-03-01] MED LIST changes: +ONDANSETRON HCL4 M2 PO
== END ==
LOC: MRI 09:51
PROVIDERS: ATTEND Family Medicine
DX: M19.012 Primary osteoarthritis, left shoulder (principal); M25.512 Pain in left shoulder; M75.02 Adhesive capsulitis of left shoulder

== ENCOUNTER → 2021-03-14 | Outpatient (CLI) | payer OTHER | LOC: SJCVCIMAG 07:44 | PROVIDERS: ATTEND Internal Medicine | DX: R00.0 Tachycardia, unspecified (principal); I49.3 Ventricular premature depolarization; R06.00 Dyspnea, unspecified; R53.83 Other fatigue; R01.1 Cardiac murmur, unspecified; E78.5 Hyperlipidemia, unspecified; Z90.710 Acquired absence of both cervix and uterus; Z88.8 Allergy status to other drugs, medicaments and biological substances; Z79.899 Other long term (current) drug therapy ==

== ENCOUNTER 2021-04-01 12:11 | Emergency (ER) | payer OTHER ==
[~2021-04-01] VITALS: Ht 170.2 cm; Wt 96.6 kg
[2021-04-01] MEDS ORDERED: NEXIUM20 MG PO (12:50)
[2021-04-01] MEDS ORDERED: PROMETH-CODEIN 65 ML PO (13:30)
[2021-04-01] MEDS ORDERED: AMOXIL 875 MG875 M1 PO (13:30)
[2021-04-01 13:50] VITALS: BP 124/86
== END 2021-04-01 13:52 | disposition home or self-care (01) ==
LOC: ER 12:11
DX: H66.91 Otitis media, unspecified, right ear (principal); R09.81 Nasal congestion; K21.9 Gastro-esophageal reflux disease without esophagitis; Z90.710 Acquired absence of both cervix and uterus; Z79.899 Other long term (current) drug therapy; Z88.1 Allergy status to other antibiotic agents; Z20.822 Contact with and (suspected) exposure to COVID-19

== ENCOUNTER → 2021-05-02 | Outpatient (CLI) | payer OTHER ==
[~2021-05-02] VITALS: Ht 170.2 cm; Wt 101.6 kg
[~2021-05-02] MED LIST changes: +AMOXIL 875 MG875 M1 PO; +BETAMETHASONE D50 G2 TOP; +FLUOCINOLONE AC15 G2 TOP; +NEXIUM20 MG PO; +NITROSTAT0.4 M1 SUBLING; +PROMETH-CODEIN 65 ML PO
[2021-05-02 11:13] VITALS: BP 125/75
[2021-05-02 11:22] LABS: HEMATOCRIT 39.1 % (37.0-47.0); HEMOGLOBIN 12.8 gm/dL (12.0-15.0); MCHC 32.9 g/dL (28.0-37.0); MCV 91.2 fL (80.0-100.0); RBC 4.28 mil/uL (4.20-5.00); RDW 13.7 % (10.5-14.5)
[2021-05-02 11:31] LABS: CALCIUM 8.7 mg/dL (8.5-10.1); CREATININE 0.7 mg/dL (0.6-1.0); POTASSIUM 4.6 mmol/L (3.5-5.1)
--- NOTE | 2021-05-08 16:46 | CATHLAB ---
[facility] [place] [address] [place] [address] INVASIVE PROCEDURE REPORT Name: DEJA SCHWAB Room #: REG ARLYN WangFrankyArley#: [id number] Admission: 05/02/21 Attend Phys: Dennis Hopper Discharge: Date of : 75 Report #: [id number] THIS REPORT FOR: cc: Dominic John James A. DO Lammoglia, Francisco J. MD ~ APPROVED REPORT Study performed: 05/02/2021 13:11:39 Patient Details Patient Status: Out-Patient Room #: The patient is a 46 year-old female Event Personnel Dennis Hopper Cage Loader, Mariah Bailey RTR Monitor, Sanna Mg RTR EdgardubEmily Hillary RN [employer] special education teacher Performed Art Access - R femoral artery* Left Heart Cath w/or w/o Coronaries [id number] [facility] Hemostasis with Manual pressure 67838 Initial Mod Sed Same Phys/QHP [facility] [id number] Mod Sed Same Phys/QHP [id number], supervision conscious sedation Indication Positive stress test, Chest pain Procedure Narrative The Right Groin^ was infiltrated with 1% Lidocaine subcutaneous anesthesia. A PINNACLE 4FR Sheath #[id number] sheath was inserted into the RFA^. Coronary angiography was performed using coronary diagnostic catheters. The right coronary system was accessed and visualized with a JR4 catheter. The left coronary system was accessed and visualized with a JL4 catheter. The left ventricle was accessed and visualized with a PIGTAIL catheter. Hemostasis was obtained with manual pressure following sheath removal without any complications. The patient tolerated the procedure well and there were no complications associated with the procedure. There was no hematoma. Intraoperative Conscious Sedation Sedation start time: 12:52 Case end Time: 14:25 [facility] [place] [address] [place] [address] INVASIVE PROCEDURE REPORT Name: DEJA SCHWAB Room #: REG [facility]#: [id number] Admission: 05/02/21 Attend Phys: Dennis Ordonez Discharge: Date of : 75 Report #: [id number] Versed 2 mg Fluoro Time: 1.90 minutes Dose: DAP 3723.80 cGycm2 561 mGy Contrast Type and Amount: Omnipaque 45 ml Coronary Angiography The patient's coronary anatomy is right dominant. Diagnostic Cath Left Main Left main is a moderate caliber vessel normal origin bifurcates into descending left circumflex and was is free of high-grade disease LAD Left anterior descending is a type II vessel of moderate caliber. It courses in the anterior interventricular sulcus giving rise to several diagonal branches free of significant high-grade disease. The course is tortuous but no flow-limiting lesions are identified Diagonal 1 Small caliber vessel free of high-grade disease Circumflex Small caliber vessel which courses in the AV groove giving rise to an early marginal branch and then coursing posteriorly giving rise to a second marginal branch before terminating a small posterior wall vessel. There is no high-grade lesions noted OM1 Small caliber vessel without significant obstructive lesions present OM2 Small caliber posterior wall vessel free of high-grade disease Right Coronary Moderate caliber vessel of normal origin gives rise to small ventricular branches prior to reaching the acute R PDA Moderate caliber vessel nonobstructive coursing in the posterior interventricular sulcus towards the apex Left Ventriculography Left Ventriculography was not performed. Hemodynamics The aortic pressure is 154/85 mmHg with a mean of 54 mmHg. The left ventricular pressure is 146/2 mmHg with a mean of mmHg. The left ventricular end diastolic pressure is 21 mmHg. Conclusion 1. Normal coronary arteries 2. Normal hemodynamic [facility] [address] [place] [address] INVASIVE PROCEDURE REPORT Name: SCHWABDEJAGEOVANNI MANN Room #: REG Brittany#: [id number] Admission: 05/02/21 Attend Phys: Dennis Ordonez Discharge: Date of : 75 Report #: [id number] Recommendations Cardiac Risk Reduction Program <ELECTRONICALLY SIGNED> By: Dennis Hopper MD 05/08/21 1645 1645 1645 Dennis Hopper MD /INF
== END | disposition home or self-care (01) ==
LOC: CATH 07:05
PROVIDERS: ATTEND Internal Medicine
DX: R07.9 Chest pain, unspecified (principal); R94.39 Abnormal result of other cardiovascular function study; E78.5 Hyperlipidemia, unspecified; K21.9 Gastro-esophageal reflux disease without esophagitis; E66.9 Obesity, unspecified; Z98.890 Other specified postprocedural states; Z79.899 Other long term (current) drug therapy; Z90.710 Acquired absence of both cervix and uterus; Z82.49 Family history of ischemic heart disease and other diseases of the circulatory system; Z88.8 Allergy status to other drugs, medicaments and biological substances

== ENCOUNTER 2021-06-29 06:17 | Emergency (ER) | payer OTHER ==
[~2021-06-29] VITALS: Ht 170.2 cm; Wt 97.5 kg
[2021-06-29] MEDS ORDERED: HYDROCODON-ACE1 EAC7 PO ×2 (06:53→07:54)
[2021-06-29] MEDS ORDERED: PREDNISONE50 MG PO ×2 (06:53→07:54)
[2021-06-29] MEDS ORDERED: FLEXERIL PO ×2 (06:53→07:54)
[2021-06-29 07:58] VITALS: BP 118/65
== END 2021-06-29 07:59 | disposition home or self-care (01) ==
LOC: ER 06:17
DX: S46.912A Strain of unspecified muscle, fascia and tendon at shoulder and upper arm level, left arm, initial encounter (principal); K21.9 Gastro-esophageal reflux disease without esophagitis; Z98.890 Other specified postprocedural states; Z90.710 Acquired absence of both cervix and uterus; Z79.1 Long term (current) use of non-steroidal anti-inflammatories (NSAID); Z79.891 Long term (current) use of opiate analgesic; Z79.899 Other long term (current) drug therapy; Z88.1 Allergy status to other antibiotic agents; X58.XXXA Exposure to other specified factors, initial encounter; Y93.89 Activity, other specified; Y92.89 Other specified places as the place of occurrence of the external cause; Y99.8 Other external cause status